=== PATIENT | female | born 1965 | race African-American/Black ===

== ENCOUNTER 2023-04-01 12:19 | Emergency (ER) | payer OTHER ==
[~2023-04-01] VITALS: Ht 167.6 cm; Wt 74.0 kg
[2023-04-01 13:20] VITALS: TEMP 98.7; O2SAT 100
[2023-04-01 15:15] VITALS: BP 146/91; PULSE 75; RESP 20
[2023-04-01] MEDS ORDERED: IBUPROFEN 600MG TABLET PO ONE (15:15)
[2023-04-01] MEDS ORDERED: IBUP-2029 MT (16:23)
[2023-04-01] MEDS ORDERED: CYCL10TA21 MT (16:23)
== END 2023-04-01 17:58 | disposition home or self-care (01) ==
LOC: ER 12:19
DX: S43.401A Unspecified sprain of right shoulder joint, initial encounter (principal); M54.50 Low back pain, unspecified; X50.9XXA Other and unspecified overexertion or strenuous movements or postures, initial encounter; Y93.89 Activity, other specified; Y92.89 Other specified places as the place of occurrence of the external cause; Y99.8 Other external cause status
CPT/HCPCS: 72100; 73030; 99284

== ENCOUNTER 2025-05-27 10:41 | Emergency (ER) | payer MEDICAID ==
[~2025-05-27] VITALS: Ht 172.7 cm; Wt 78.0 kg
[~2025-05-27 10:41] MED LIST: APIX5TAB MT; ATOR10TA PO; CYCL10TA21 MT; GABA-1180 MT; HYDR-4001 MT; LISI10TA26 MT; METF-416 PO; TRAZ-251 PO; VENL-179 PO
[2025-05-27 10:45] VITALS: TEMP 36.6; O2SAT 100
[2025-05-27] MEDS ORDERED: HYDROCODONE/ACETAMINOPHEN 10/325MG TABLET PO ONE (13:45)
[2025-05-27] MEDS ORDERED: CYCL5TAB3 MT (13:57)
[2025-05-27] MEDS: KETOROLAC 30MG/ML VIAL IM ONE (14:20)
[2025-05-27 14:28] VITALS: BP 125/86; PULSE 77; RESP 16; O2SAT 98
== END 2025-05-27 14:30 | disposition home or self-care (01) ==
LOC: ER 10:49
DX: M54.50 Low back pain, unspecified (principal); R25.2 Cramp and spasm; I10 Essential (primary) hypertension; Z79.899 Other long term (current) drug therapy; Z98.890 Other specified postprocedural states
CPT/HCPCS: 99283; 96372; J1885